=== PATIENT | male | born 1950 | race Caucasian/White ===

== ENCOUNTER 2017-11-03 05:00 | Day surgery (SDC) | payer MEDICARE, BC ==
[2017-11-02 16:04] LABS: HEMATOCRIT 39.6 % (42.0-54.0); HEMOGLOBIN 13.8 g/dL (13.5-17.5); MCH 30.3 pg (26.0-34.0); MCHC 34.8 g/dL (31.0-37.0); MCV 86.8 fL (80.0-100.0); MEAN PLATELET VOLUME 10.8 fL (7.4-10.4); RBC 4.56 10x6/uL (4.20-6.10); RDW 13.4 % (11.5-14.5); WBC 8.3 10x3/uL (4.8-10.8)
[2017-11-03] VITALS (11 sets, daily range): BP systolic 110–126; BP diastolic 45–83; BMI 26.2; BMI 27.4
--- NOTE | ~2017-11-03 | OP ---
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 PROCEDURE: Anterior cervical discectomy and fusion with removal of osteophytes at C6-C7, [facility], PEEK interbody cage, separate anterior cervical plate and screws from [facility], [employer] bone stem cell allograft. SURGEON: Maurice Barfield MD PRIMARY CARE PHYSICIAN: [facility] DESCRIPTION OF TECHNIQUE: After induction of general endotracheal anesthesia, the patient was positioned supine on the operating table. Neck was prepped and draped in usual sterile fashion. Fluoroscopic x-ray and freer localized the C6-C7 interspace. A transverse skin incision was carried out from the midline to the sternocleidomastoid muscle. The platysma muscle was divided with Bovie cautery. Using blunt and sharp dissection with Metzenbaum scissors, I proceeded in the avascular plane medial to the carotid sheath. The C6-C7 interspace was identified with a spinal needle and fluoroscopic x-ray. The longus colli muscles were elevated from bodies of C6 and C7. [place] distracting pins were placed by the C6-C7. The annulus was then incised with a #11 blade. A series of curettes and pituitary rongeurs were used to remove the disc material. The bony endplates were prepared with curettes. Posteriorly, osteophytes were drilled away with the Normaas-Shar drill and microscope. The posterior longitudinal ligament was removed with Cloward rongeurs. There was a large disc extrusion through the hole in the posterior longitudinal ligament. This was removed within the foramen on both sides. Following this, the dura was decompressed within the foramina as well as central dura. A PEEK interbody cage was placed in the disc space under distraction. Prior to this, it was filled with [employer] bone stem cell allograft. A separate anterior cervical plate and screws from [employer] was used to span the C6-C7 interspace. The 18 mm screws were used in the bodies of C6 and C7. Good position of the hardware was confirmed with fluoroscopic x-ray. A locking Cam was used to lock both the screws in place. Meticulous hemostasis was maintained throughout the wounds. The wound was irrigated with copious amounts of Ancef irrigant solution. The platysma and subdermal layer closed with interrupted 3-0 Vicryl suture. The skin was reapproximated with Steri-Strips and benzoin. A sterile dressing was applied to the wound. The patient was awakened in good condition and taken to recovery. All counts were reported as correct. Estimated blood loss was minimal. TRANSINT:[id number] Voice Confirmation ID: [id number] DOCUMENT ID: [id number] CC: Dr. Misha Mujica [phone] OPERATIVE REPORT [id number] GLADYS MONTEIRO JOHN MD at 1843 CC: DR.CLINTON LESLY [phone] DICTATION DATE: 11/17/17 1224 [employer] OPERATOR: 11/17/17 1246 [facility] 11/04/[address] [id number]
[~2017-11-03 05:00] MED LIST: CARDURA8 MG PO; OMEPRAZOLE40 MG PO; SYNTHROID25 MCG PO; VOLTAREN75 MG PO
[2017-11-03] MEDS ORDERED: NEURONTIN600 MG PO (06:22)
[2017-11-03] MEDS ORDERED: OXYCONTIN10 MG PO (06:23)
[2017-11-03] MEDS ORDERED: ZANAFLEX4 MG PO (06:24)
[2017-11-03] MEDS ORDERED: PROSCAR5 MG PO (06:25)
[2017-11-04 01:05] VITALS: BP 134/68
[2017-11-04 05:16] VITALS: BP 124/68
[2017-11-04 07:41] VITALS: BP 123/58
[2017-11-04] MEDS ORDERED: HYDROCODONE-APA1 TAB PO (09:56)
== END 2017-11-04 12:16 | disposition home or self-care (01) ==
LOC: D.MS 05:00 → D.OPS 05:00 → D.PAN 07:30 → D.OPS 07:30 → D.MS 09:26 → D.OPS 11-04 12:16
PROVIDERS: Anesthesiology
DX: M54.12 Radiculopathy, cervical region (principal); M53.80 Other specified dorsopathies, site unspecified; E03.9 Hypothyroidism, unspecified; K21.9 Gastro-esophageal reflux disease without esophagitis; N40.0 Benign prostatic hyperplasia without lower urinary tract symptoms; Z01.812 Encounter for preprocedural laboratory examination